=== PATIENT | male | born 1945 | race Two or more races ===

== ENCOUNTER 2017-05-26 10:29 | Outpatient (CLI) | payer OTHER ==
[~2017-05-26 10:29] MED LIST: NABUMETONE500 MG PO; PERCOCET 5/3251 TAB PO
== END 2017-05-26 10:49 | disposition home or self-care (01) ==
LOC: SONOGRAMA 10:29
DX: R80.9 Proteinuria, unspecified (principal); I10 Essential (primary) hypertension; F17.200 Nicotine dependence, unspecified, uncomplicated

== ENCOUNTER 2017-06-13 06:00 | Day surgery (SDC) | payer OTHER | END 2017-06-13 11:15 | disposition home or self-care (01) | LOC: AMB-ENDOS 06:00 | DX: D12.6 Benign neoplasm of colon, unspecified (principal); K57.30 Diverticulosis of large intestine without perforation or abscess without bleeding; K63.5 Polyp of colon ==

== ENCOUNTER 2017-12-06 08:10 | Outpatient (CLI) | payer OTHER | END 2017-12-06 08:19 | disposition home or self-care (01) | LOC: TOM 08:10 | DX: J84.10 Pulmonary fibrosis, unspecified (principal) ==

== ENCOUNTER 2020-06-10 07:46 | Outpatient (CLI) | payer OTHER | END 2020-06-10 08:07 | disposition home or self-care (01) | LOC: MRI 07:46 | PROVIDERS: ATTEND Physical Medicine & Rehabilitation | DX: M25.512 Pain in left shoulder (principal); M54.5 Low back pain | CPT/HCPCS: 72148 ==

== ENCOUNTER 2020-08-05 10:17 | Outpatient (CLI) | payer OTHER | END 2020-08-05 10:25 | disposition home or self-care (01) | LOC: LAB 10:17 | PROVIDERS: ATTEND Radiology Diagnostic Radiology | DX: I70.0 Atherosclerosis of aorta (principal) ==

== ENCOUNTER 2020-08-11 07:00 | Outpatient (CLI) | payer OTHER | END 2020-08-11 07:15 | disposition home or self-care (01) | LOC: TOM 07:00 | PROVIDERS: ATTEND Specialist | DX: I70.0 Atherosclerosis of aorta (principal); M54.5 Low back pain; I10 Essential (primary) hypertension ==

== ENCOUNTER 2020-12-08 05:40 | Day surgery (SDC) | payer OTHER | END 2020-12-08 11:45 | disposition home or self-care (01) | LOC: AMB-ENDOS 05:40 | PROVIDERS: ATTEND Surgery | DX: D12.3 Benign neoplasm of transverse colon (principal); K64.8 Other hemorrhoids ==

== ENCOUNTER 2022-01-28 07:26 | Outpatient (CLI) | payer OTHER | END 2022-01-28 07:28 | disposition home or self-care (01) | LOC: SONOGRAMA 07:26 | PROVIDERS: ATTEND General Practice | DX: K77 Liver disorders in diseases classified elsewhere (principal); E07.9 Disorder of thyroid, unspecified; R63.4 Abnormal weight loss ==

== ENCOUNTER 2022-04-05 10:01 | Outpatient (CLI) | payer OTHER | END 2022-04-05 10:10 | disposition home or self-care (01) | LOC: SONOGRAMA 10:01 | PROVIDERS: ATTEND Specialist/Technologist, Other Nephrology | DX: N18.2 Chronic kidney disease, stage 2 (mild) (principal); I12.9 Hypertensive chronic kidney disease with stage 1 through stage 4 chronic kidney disease, or unspecified chronic kidney disease ==

== ENCOUNTER → 2024-07-31 10:48 | Outpatient (CLI) | payer OTHER ==
[~2024-07-31 10:48] MED LIST changes: +GABAPENTIN300 M2 PO
[2024-07-31 12:01] LABS: CREATININE SERUM 1.2 mg/dL (0.70-1.30)
== END | disposition home or self-care (01) ==
LOC: LAB 10:48
PROVIDERS: ATTEND Radiology Diagnostic Radiology
DX: R31.29 Other microscopic hematuria (principal)

== ENCOUNTER 2024-08-07 07:06 | Outpatient (CLI) | payer OTHER | END 2024-08-07 07:18 | disposition home or self-care (01) | LOC: TOM 07:06 | PROVIDERS: ATTEND Urology | DX: R31.29 Other microscopic hematuria (principal) ==